=== PATIENT | female | born 1970 | race Caucasian/White ===

== ENCOUNTER 2021-09-29 14:55 | Outpatient (REF) | payer OTHER, SELFPAY ==
--- NOTE | ~2021-09-29 | MM_ITS ---
EXAMINATION: MM DIAGNOSTIC DIGITAL BREAST TOMOSYNTHESIS, BILATERAL US DIAGNOSTIC ULTRASOUND BREAST, RIGHT CLINICAL INFORMATION: [place] sized palpable area noted by patient mid upper outer right breast. The lifetime risk of breast cancer based on the Tyrer-Cuzick Model is 11%. COMPARISON: Mammography: 07/28/2019, outside mammography 01/13/2017, 05/02/2014 ([place], [place]). TECHNIQUE: Digital breast tomosynthesis is performed in both the craniocaudal and mediolateral oblique views along with computer-aided detection (CAD). Synthesized 2D images are generated from the tomosynthesis. Ultrasound right breast is targeted to the area of clinical concern upper outer quadrant. In addition, imaging also performed periareolar outer right breast in area of nodularity on mammography. Grayscale imaging and color Doppler are performed without and with harmonics. FINDINGS: The breasts are heterogeneously dense, which may obscure small masses (ACR BI-RADS breast composition Category c). Breast tissue composition borders on average fibroglandular. Denser breast parenchyma areas in the upper quadrants. The parenchymal pattern is similar to prior studies. Left breast shows no significant mass or architectural abnormality. Neither breast shows abnormal calcifications. The axilla and skin contours are unremarkable. Right breast shows no mammographic correlate for patient's symptoms mid upper outer quadrant which appears similar to prior studies dating back to 2013. There is an oval circumscribed nodule periareolar 9:30 o'clock right breast on current exam, corresponding to cyst on subsequent ultrasound. Ultrasound right breast demonstrates 2 small simple cysts anterior lateral breast, the larger corresponds to the nodularity on mammography and measures 0.6 x 0.4 cm. The cyst is anechoic and shows increased through-transmission of sound and no color flow. The adjacent smaller cyst measures 0.4 x 0.3 cm. There is no solid mass or architectural abnormality. There is no ultrasound correlate in the area of patient palpable concern. Results are discussed with the patient at time of visit. MM/MM tomosynthesis diagnostic BI IMPRESSION: Left: -No mammographic evidence of malignancy. Right: -No mammographic evidence of malignancy. -Two subcentimeter simple cysts anterior lateral breast, unrelated to palpable concern. ASSESSMENT: BI-RADS 2: Benign RECOMMENDATION: 1. Patient's right breast palpable concern should be managed based on the clinical impression. If clinically indicated, further evaluation may be considered with surgical consult. Decision to proceed with biopsy should be based on clinical grounds and degree of clinical concern. 2. Otherwise, routine annual screening mammography. This patient's information was entered into a reminder system with a target due date for their next mammogram.
== END 2021-09-29 14:56 | disposition home or self-care (01) ==
LOC: HO.MAMMO 14:55
PROVIDERS: PCP Internal Medicine; Visit Provider Internal Medicine
DX: N63.15 Unspecified lump in the right breast, overlapping quadrants (principal)
CPT/HCPCS: 76642; 77062; 77066

== ENCOUNTER 2021-12-16 06:45 | Outpatient (REF) | payer OTHER, SELFPAY ==
[2021-12-16 11:42] LABS: MANUAL DIFF FLAG NO
[2021-12-16 12:01] LABS: Basophils Absolute Auto 0.1 X10*3/uL (0.0-0.2); Basophils Percent Auto 0.7 % (0-2); Eosinophils Absolute Auto 0.1 X10*3/uL (0.0-0.4); Eosinophils Percent Auto 1.9 % (0-4); Hematocrit 36.4 % (37.0-47.0); Hemoglobin 11.8 g/dl (12.0-16.0); Imm Gran Abs Auto 0.01 X10*3/uL (0.00-0.03); Imm Gran Pct Auto 0.1 % (0.0-0.4); Lymphocytes Absolute Auto 3.1 X10*3/uL (1.2-4.9); Lymphocytes Percent Auto 44.4 % (20-40); Mean Corpuscular HGB Conc 32.4 g/dl (31.0-35.0); Mean Corpuscular Hemoglobin 27.9 pg (27.0-33.0); Mean Corpuscular Volume 86.1 fL (80.0-98.0); Mean Platelet Volume 10.5 fL (9.4-12.3); Monocytes Absolute Auto 0.5 X10*3/uL (0.1-1.2); Neutrophils Absolute Auto 3.2 x10*3/uL (2.0-8.3); Neutrophils Percent Auto 45.9 % (45-73); Platelet Count 275 X10*3/uL (160-400); Red Blood Count 4.23 X10*6/uL (4.20-5.50); Red Cell Distribution Width 13.6 % (11.0-16.0); White Blood Count 6.9 X10*3/uL (4.8-10.8)
[2021-12-16 12:29] LABS: Alanine Aminotransferase 23 U/L (0-31); Albumin Level 4.3 g/dL (3.5-5.0); Alkaline Phosphatase 72 U/L (39-117); Anion Gap 11 (12-20); Aspartate Amino Transferase 19 U/L (5-31); Bilirubin Total 0.7 mg/dL (0.0-1.0); Blood Urea Nitrogen 15 mg/dL (9-16); Calcium 8.9 mg/dL (8.4-10.2); Carbon Dioxide 27 mmol/L (22-29); Chloride 105 mmol/L (96-108); Cholesterol 206 mg/dL; Estimated Glomerular Filt Rate > 60; Glucose Fasting 96 mg/dL (60-99); HDL Cholesterol 41 mg/dL; LDL Cholesterol Calculated 137 mg/dl; Potassium 4.2 mmol/L (3.3-5.1); Sodium 139 mmol/L (135-145); Total Protein 7.2 g/dL (6.5-8.0); Triglycerides 144 mg/dL
[2021-12-16 12:53] LABS: TSH reflex Free T4 3.16 uIU/mL (0.32-4.0)
== END 2021-12-16 06:46 | disposition home or self-care (01) ==
LOC: HO.HMGCLDS 06:45
PROVIDERS: Visit Provider Internal Medicine
DX: Z00.01 Encounter for general adult medical examination with abnormal findings (principal); E66.09 Other obesity due to excess calories; R03.0 Elevated blood-pressure reading, without diagnosis of hypertension
CPT/HCPCS: 36415; 80053; 80061; 84443; 85025

== ENCOUNTER 2022-03-26 10:58 | Emergency (ER) | payer OTHER, SELFPAY ==
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
[2022-03-26 11:14] VITALS: BP 154/88; PULSE 90; RESP 20; TEMP 36.6; O2SAT 98; BMI 38.2
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
--- NOTE | 2022-03-26 18:01 | ECG_ITS ---
Test Reason : DIZZINESS Blood Pressure : / mmHG Vent. Rate : 076 BPM Atrial Rate : 076 BPM P-R Int : 146 ms QRS Dur : 078 ms QT Int : 406 ms P-R-T Axes : 060 010 038 degrees QTc Int : 456 ms Normal sinus rhythm Normal ECG No previous ECGs available Referred By: Codi Mock Electronically Signed By:YADIEL PRUETT
[2022-03-26] MEDS: Cyclobenzaprine HCl 10 MG TABLET PO (19:15)
[2022-03-26] MEDS: Ibuprofen 600 MG TABLET PO (19:15)
== END 2022-03-26 21:13 | disposition home or self-care (01) ==
PROVIDERS: Emergency Provider Internal Medicine; PCP Internal Medicine
DX: S06.0X0A Concussion without loss of consciousness, initial encounter (principal); S13.4XXA Sprain of ligaments of cervical spine, initial encounter; S62.101A Fracture of unspecified carpal bone, right wrist, initial encounter for closed fracture; V43.52XA Car driver injured in collision with other type car in traffic accident, initial encounter; M25.511 Pain in right shoulder; Y93.89 Activity, other specified; Y92.414 Local residential or business street as the place of occurrence of the external cause; Y99.9 Unspecified external cause status
CPT/HCPCS: 71045; 73030; 73110; 93005; 99283

== ENCOUNTER 2022-07-28 08:00 | Outpatient (RCR) | payer OTHER, SELFPAY ==
--- NOTE | 2022-07-28 14:09 | MHC.OT.DC ---
[address] [phone] F: [phone] Occupational Therapy Discharge Note Provider: Snehal Rehman Diagnosis: Right wrist fracture Date of Surgery: Date of Evaluation: 06/09/22 Date of Discharge: 07/28/22 Treatments to Date: 6 Cancellations to Date: 1 No Shows to Date: 0 Discharge Status: Achieved Goals Improved Function Independent with HEP Discharge Summary: Pt demonstrates significant improvement in right hand and wrist sx. She continues to report mild occasional ulnar wrist pain and complaint of small finger intermittent numbness . Light touch sensation WNL Upper limb tension tests WNL Wrist ROM improved . Goal met. Patient Coordinator Front Desk strength improved at 55 lb on the right compared to 70 lb on the left Pt primary complaint is right shoulder pain and continued occasional ulnar hand numbness Goals considered met Electronically Signed By: Shalini Samuel OT CHT CLT Reviewed/agree with student documentation: Therapist: Please Sign and return to therapist, thank you for your referral.
== END 2022-07-28 14:09 ==
LOC: HO.OT 08:00
PROVIDERS: PCP Internal Medicine; Visit Provider Internal Medicine
DX: S62.101A Fracture of unspecified carpal bone, right wrist, initial encounter for closed fracture (principal); M25.511 Pain in right shoulder
CPT/HCPCS: 97033; 97110; 97165

== ENCOUNTER 2022-10-29 14:58 | Outpatient (REF) | payer OTHER, SELFPAY ==
[2022-11-04 01:54] LABS: HPV mRNA E6/E7 rflx Not Detected (Not Detected)
== END 2022-10-29 14:59 | disposition home or self-care (01) ==
LOC: HO.LNP 14:58
PROVIDERS: PCP Internal Medicine; Visit Provider Advanced Practice Midwife
DX: Z01.419 Encounter for gynecological examination (general) (routine) without abnormal findings (principal); Z11.51 Encounter for screening for human papillomavirus (HPV)
CPT/HCPCS: 87624; 88142

== ENCOUNTER 2022-11-09 16:23 | Outpatient (REF) | payer OTHER, SELFPAY ==
--- NOTE | ~2022-11-09 | MM_ITS ---
EXAMINATION: MM SCREENING DIGITAL BREAST TOMOSYNTHESIS, BILATERAL CLINICAL INFORMATION: Screening. Asymptomatic. The lifetime risk of breast cancer based on the Tyrer-Cuzick Model is 10%. COMPARISON: Mammography: 09/29/2021, 07/28/2019, right breast ultrasound 09/29/2021; outside mammography 01/13/2017 ([facility], [place], [place]). TECHNIQUE: Digital breast tomosynthesis is performed in both the craniocaudal and mediolateral oblique views along with computer-aided detection (CAD). Synthesized 2D images are generated from the tomosynthesis. FINDINGS: The breasts are heterogeneously dense, which may obscure small masses (ACR BI-RADS breast composition Category c). Parenchymal pattern is similar to prior studies and there is no developing density or architectural abnormality or significant mass. The cyst periareolar 9:30 right breast is decreased in size, no longer clearly visualized. Again, there are scattered bilateral punctate benign round calcifications. There are new loosely grouped round benign-appearing calcifications central 11:30 right breast. Patient will be recalled to obtain magnification views to fully characterize. MM/MM tomosynthesis screening BI IMPRESSION: Right: -There are new loosely grouped probable benign round calcifications central 11:30 right breast. Left: -No mammographic evidence of malignancy. ASSESSMENT: BI-RADS 0: Incomplete - Need Additional Imaging Evaluation RECOMMENDATION: Routine annual mammography screening. This patient's information was entered into a reminder system with a target due date for their next mammogram.
== END 2022-11-09 16:24 | disposition home or self-care (01) ==
LOC: HO.MAMMO 16:23
PROVIDERS: PCP Internal Medicine; Visit Provider Internal Medicine
DX: Z12.31 Encounter for screening mammogram for malignant neoplasm of breast (principal)
CPT/HCPCS: 77063; 77067

== ENCOUNTER 2022-12-02 14:53 | Outpatient (REF) | payer OTHER, SELFPAY ==
--- NOTE | ~2022-12-02 | MM_ITS ---
EXAMINATION: MM DIAGNOSTIC DIGITAL MAMMOGRAPHY, RIGHT CLINICAL INFORMATION: Recall from screening for new loosely grouped round calcifications central 11:30 o'clock right breast. TC score 10%. COMPARISON: Mammography: 11/09/2022, 09/29/2021, 07/28/2019 TECHNIQUE: Digital mammography is performed in the following views: Magnification CC, magnification ML. FINDINGS: The breasts are heterogeneously dense, which may obscure small masses (ACR BI-RADS breast composition Category c). The additional magnification views confirm benign-appearing loosely grouped round calcifications mid 11:30 position, some coarser and some smaller. There are other similar appearing scattered calcifications in the breast. Results are discussed with the patient at time of visit. Management plan is for short interval follow-up diagnostic right mammography in 6 months to include magnification views. MM/MM added views RT IMPRESSION: Probable benign round grouped calcifications mid 11:30 right breast. ASSESSMENT: BI-RADS 3: Probably Benign RECOMMENDATION: Diagnostic right mammography in 6 months. This patient's information was entered into a reminder system with a target due date for their next mammogram.
== END 2022-12-02 14:54 | disposition home or self-care (01) ==
LOC: HO.MAMMO 14:53
PROVIDERS: PCP Internal Medicine; Visit Provider Internal Medicine
DX: R92.1 Mammographic calcification found on diagnostic imaging of breast (principal)
CPT/HCPCS: 77065

== ENCOUNTER 2022-12-15 16:00 | Outpatient (RCR) | payer OTHER, SELFPAY ==
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
--- NOTE | 2022-12-18 08:48 | MHC.PT.DC ---
[facility] [place] Office [place] Office [place] Office [address] Nohelia Weber [address] [phone] F: [phone] F: [phone] F: [phone] F: [phone] Physical Therapy Discharge Report Diagnosis: pain in R shoulder Date of Surgery: n/a Date of Evaluation: 08/24/22 Date of Discharge: 12/18/22 Treatments to Date: 19 Cancellations to Date: 1 No Shows to Date: 0 Discharge Status: Recommend MD Follow-up Discharge Summary: Pt saw TONG SETTER for last scheduled visit at which point plan was to d/c and follow up with MD. Electronically signed by: Nilam Walsh, PT, DPT, ATC Please sign and return to therapist. Thank you for your referral.
== END 2022-12-18 08:48 | disposition home or self-care (01) ==
LOC: HO.PTCHIC 16:00
PROVIDERS: PCP Internal Medicine; Visit Provider Internal Medicine
DX: M25.511 Pain in right shoulder (principal)
CPT/HCPCS: 97110; 97140; 97161

== ENCOUNTER 2023-08-19 13:52 | Outpatient (REF) | payer OTHER, SELFPAY ==
--- NOTE | ~2023-08-19 | MM_ITS ---
EXAMINATION: MM DIAGNOSTIC DIGITAL BREAST TOMOSYNTHESIS, BILATERAL CLINICAL INFORMATION: 6 month follow-up right breast probably benign calcifications. Patient also due for bilateral screening. History of right breast cysts. COMPARISON: Mammography: 12/02/2022, 11/09/2022 (BI-RADS 0) 09/29/2021, 07/28/2019; right breast ultrasound 09/29/2021; outside mammography 01/13/2017 ([facility], [place], [place]). TECHNIQUE: Digital breast tomosynthesis is performed in both the craniocaudal and mediolateral oblique views along with computer-aided detection (CAD). Synthesized 2D images are generated from the tomosynthesis. In addition, 2-D spot magnification right CC and ML views were obtained. FINDINGS: The breasts are heterogeneously dense, which may obscure small masses (ACR BI-RADS breast composition Category c). Loosely grouped rounded calcifications in the mid 11:30 position right breast are slightly more coarsened in appearance compared with 12/02/2022, and do not demonstrate any aggressive changes. These calcifications are benign and no further follow-up recommended. There are stable scattered bilateral punctate calcifications, benign. There are similar known benign cysts in the upper outer right breast, unchanged. There are no suspicious masses or areas of architectural distortion in either breast. The parenchymal pattern is stable from prior exams. MM/MM tomosynthesis diagnostic BI IMPRESSION: There are no findings in either breast suspicious for malignancy. Rounded calcifications in the upper outer right breast, posterior one third, have become more coarsened and coalesced further, and are clearly benign in etiology. No further follow-up recommended. Stable benign findings in both breasts. Recommend the patient return to routine annual screening mammography. ASSESSMENT: BI-RADS BI-RADS 2 - Benign Findings RECOMMENDATION: 1 year F/U Results were provided to the patient at time of visit by the technologist. This patient's information was entered into a reminder system with a target due date for their next mammogram.
== END 2023-08-19 13:53 | disposition home or self-care (01) ==
LOC: HO.MAMMO 13:52
PROVIDERS: PCP Internal Medicine; Visit Provider Internal Medicine
DX: R92.1 Mammographic calcification found on diagnostic imaging of breast (principal)
CPT/HCPCS: 77062; 77066

== ENCOUNTER → 2023-08-19 14:00 | Outpatient (BNV) | payer OTHER, SELFPAY | PROVIDERS: PCP Internal Medicine; Visit Provider Radiology Diagnostic Radiology | DX: R92.1 Mammographic calcification found on diagnostic imaging of breast (principal) | CPT/HCPCS: 77062; 77066 ==

== ENCOUNTER 2023-11-17 13:58 | Outpatient (AMB) | payer OTHER, SELFPAY ==
--- NOTE | 2023-11-17 14:04 | MHC.OFFVIS ---
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 She is doing well with no concerns. Attempting to eat a healthy diet with calcium and vitamin D and stays active with exercise w/walking. Had shoulder surgery in April finishing up physical therapy now. Currently sexually active, female partner only. Denies any vaginal dryness or irritation. STI testing offered; she declines. Last pap smear; 2022. Last mammogram; 2023. Cologuard in 2022. Denies any family history of breast, ovarian or colon cancer. [facility] Surgical History (Updated 11/17/23 @ 14:44 by JUDY Salmon) Hx of LASIK Hx of rotator cuff surgery Hx of tonsillectomy Family History Sister Personal history of malignant neoplasm of cervix uteri Social History Housing: Apartment Patient Tobacco Use Status: Never used Tobacco e-Cigarette/Vaping Use: Never Used Second Hand Smoke Exposure: No Patient : No Current occupational status: employed Sexual orientation: Lesbian/Armijo/Homosexual Cognitive needs: No Hearing needs: No Vision needs: No Female Reproductive History Menstrual Age of Menarche: 11 control method: none Total pregnancies: 0 Date of last pap smear: 10/31/22 (negative) Date of Mammogram: 08/19/23 Review of Systems Const All systems reviewed & are unremarkable except as noted in HPI and below Reports as per HPI Eyes Reports no additional complaints ENT Reports no additional complaints Card Reports no additional complaints Resp Reports no additional complaints GI Reports as per HPI and Reports no additional complaints Reports as per HPI Musc Reports no additional complaints Skin/Breast Reports as per HPI Neuro Reports no additional complaints Psych Reports no additional complaints Endo Reports no additional complaints Gokul/Lymph Reports no additional complaints Aller/Immun Reports no additional complaints Physical Exam Vital Signs: Last Vital Signs BP 136/92 H 11/17/23 14:05 BMI result Body Mass Index 42.4 Const General: cooperative, healthy appearing, no acute distress, well developed and alert Orientation/consciousness: patient oriented x3 HEENT Head: Yes normal to inspection Eyes General: appearance normal, both eyes and all related structures Neck Neck: Yes normal visual inspection Thyroid: Thyroid normal Chest Chest palpation & inspection: normal inspection of the chest and other (no puckering, dimpling, peau de orange, retraction, discharge, masses) Breast/axilla inspection: normal inspection of the breasts Breast/axilla palpation: normal palpation of the breasts Resp Effort & Inspection: normal respiratory effort GI Inspection: Yes normal to inspection and Yes obesity Palpation (GI): Soft to palpation Rectal Exam - Female: deferred General: Yes bladder normal to palpation External Female Exam: normal external appearance and normal appearance of the urethra Speculum Exam - Vagina: normal appearance of the vagina, normal palpation and normal vaginal discharge Speculum Exam - Cervix: normal appearance of the cervix and normal palpation Bimanual exam- vagina & uterus: normal bimanual exam, normal palpation, uterine size normal, bladder normal to palpation, normal palpation and non-tender Bimanual Exam- Adnexa, other: no masses Skin General skin exam: no rashes or lesions noted Rashes: no rashes Neuro General: patient oriented x3 Cognition (Neuro): normal cognition Extrem General: Yes normal to inspection Psych Attitude: cooperative Thought process: Normal thought process present Assessment & Plan Assessment & Plan (1) Encounter for well woman exam with routine gynecological exam: Code(s): Z01.419 - Encounter for gynecological examination (general) (routine) without abnormal findings Category: Medical Plan: Discussed: Current recommendations for pap smears per ASCCP guidelines. Breast awareness, periodic self breast exams and yearly mammogram. Maintain a healthy lifestyle, well balanced diet including Calcium 1,200 mg and Vitamin D 600 IU daily, and routine exercise. Contact the office with any postmenopausal bleeding. Patient verbalizes understanding and agrees to the plan of care. She was given opportunity to ask questions and all questions were answered to the best of my ability. 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 This note is constructed using voice recognition software. While every effort has been made to ensure accuracy, electron gun inspector errors may have been included. Coding Level of Care Code Est Pt Prev Care 40-64y(20183) Diagnoses Encounter for well woman exam with routine gynecological exam Z01.419
[2023-11-17 14:05] VITALS: BP 136/92; BMI 42.4
== END 2023-11-17 15:17 | disposition home or self-care (01) ==
LOC: HO.HWS 13:58
PROVIDERS: PCP Internal Medicine; Visit Provider Advanced Practice Midwife
DX: Z01.419 Encounter for gynecological examination (general) (routine) without abnormal findings (principal)
CPT/HCPCS: 99396

== ENCOUNTER → 2023-11-17 13:58 | Outpatient (BNVA) | payer OTHER, SELFPAY | PROVIDERS: PCP Internal Medicine; Visit Provider Advanced Practice Midwife ==

== ENCOUNTER 2024-01-26 09:13 | Outpatient (AMB) | payer OTHER, SELFPAY ==
--- NOTE | 2024-01-26 10:35 | MHC.OFFWIV ---
Intake Vital Signs 01/26/24 10:36 Height 5 ft 5 in Weight 250 lb BMI 41.6 BP 106/76 Blood Pressure Location Rt brachial Position Sitting Pulse 82 Pulse Source Pulse Oximeter Temp 98.5 F Temp Source Oral Pulse Oximetry (%) 96 Oxygen Delivery Method Room Air Intake Visit Reasons: stuffy nose, sore throat, cough [phone] Intake Note: pt c/o stuffy nose, sore throat and cough. Started yesterday Patient Tobacco Use Status: Never used Tobacco Allergies penicillin V Allergy (Unknown, Verified 01/26/24 10:35) Rash sulfadiazine Allergy (Unknown, Verified 01/26/24 10:35) Rash amoxicillin Allergy (Verified 01/26/24 10:35) Hives Do you need a note to return to daycare/school/sports/work: Yes HPI stuffy nose, sore throat, cough [phone] HPI Details This note is constructed using voice recognition software. While every effort has been made to ensure accuracy, senior property accountant errors may have been included. The patient is a 53 year old female who presents to the clinic today with pharyngitis for 2 days. She reports fever 102 yesterday. Also having allergy symptoms including mild cough, sinus congestion and eye irritation typical of her normal allergies. [facility] Surgical History (Updated 11/17/23 @ 14:44 by JUDY Salmon) Hx of LASIK Hx of rotator cuff surgery Hx of tonsillectomy Family History Sister Personal history of malignant neoplasm of cervix uteri Social History Housing: Apartment Patient Tobacco Use Status: Never used Tobacco e-Cigarette/Vaping Use: Never Used Second Hand Smoke Exposure: No Current occupational status: employed Sexual orientation: Lesbian/Armijo/Homosexual Cognitive needs: No Hearing needs: No Vision needs: No Female Reproductive History Menstrual Age of Menarche: 11 Review of Systems Const All systems reviewed & are unremarkable except as noted in HPI and below Physical Exam Vital Signs: Last Vital Signs Temp 98.5 F 01/26/24 10:36 Pulse 82 01/26/24 10:36 BP 106/76 01/26/24 10:36 Pulse Ox 96 08/07/24 10:36 Oxygen Delivery Method Room Air 01/26/24 10:36 BMI result Body Mass Index 41.6 Const General: cooperative, healthy appearing, comfortable and no acute distress Orientation/consciousness: patient oriented x3 Limitations: no limitations HEENT Head: Yes normal to inspection Ears: hearing grossly normal bilaterally, external ears normal and TM's normal bilaterally General nose exam: Normal external nose present, Normal nares present and No nasal discharge present Face and sinus: Yes normal facial exam and Yes sinuses nontender Mouth: Normal oral and palatal mucosa present and moist mucous membranes Throat: Yes tonsils normal, Yes uvula midline and Yes posterior oropharynx abnormal (Erythema, with exudate) Eyes General: appearance normal, both eyes and all related structures Neck Neck: Yes normal visual inspection Lymphatic: lymphadenopathy bilateral anterior cervical Resp Effort & Inspection: normal respiratory effort, able to speak in complete sentences, Actively coughing, no respiratory distress, not tachypneic, no tripod positioning and no use of accessory muscles Auscultation: clear to auscultation bilaterally Cardio Jugular venous distension: no JVD Rate: regular rate Rhythm: regular rhythm Heart sounds: S1 normal heart sound present, S2 normal heart sound present, no click, no gallops, no murmurs and no rubs Skin General skin exam: no rashes or lesions noted, elasticity normal and turgor normal Neuro General: patient oriented x3 Extrem General: Yes normal to inspection and Yes no clubbing, cyanosis or edema Results AMB Rapid Strep AMB Rapid Strep Positive Last Edit by Perez Lugo CMA on 01/26/24 10:53 Results Reviewed Results Reviewed: Laboratory Last Values Strep Scn Rapid Clinic Positive 01/26/24 10:43 Assessment & Plan Assessment & Plan (1) Strep pharyngitis: Code(s): J02.0 - Streptococcal pharyngitis Plan: Patient positive for strep on rapid Sammy exam. She does report allergy to penicillin, so antibiotic selected based on allergy, with clindamycin. Advised patient to take to complete. Advised to remain out of work through tomorrow to be over 24 hours with antibiotic treatment. Advised change her toothbrush after starting antibiotics. Advised Tylenol or Motrin for pain management, gargling warm saltwater. Advised follow up with worsening symptoms or failure to resolve. Plan See above for full details and plan. Orders: Orders AMB Rapid Strep Screen Today Z13.9 - Encounter for screening, unspecified Medications: New clindamycin HCl 300 mg PO TID 10 days 30 caps 0RF Coding Level of Care Code Est Pt Level 3 (43216) Diagnoses Strep pharyngitis J02.0
[2024-01-26 10:36] VITALS: BP 106/76; PULSE 82; TEMP 36.9; O2SAT 96; BMI 41.6
== END 2024-01-26 11:35 | disposition home or self-care (01) ==
PROVIDERS: PCP Internal Medicine; Visit Provider Registered Nurse
DX: Z13.9 Encounter for screening, unspecified (principal); J02.0 Streptococcal pharyngitis
CPT/HCPCS: 87880; 99213

== ENCOUNTER 2024-05-02 14:29 | Outpatient (AMB) | payer OTHER, SELFPAY ==
--- NOTE | 2024-05-02 14:30 | A.OFFPC_ITS ---
Vital Signs 05/02/24 14:32 Height 5 ft 5 in Weight 253 lb 6 oz BMI 42.2 BP 138/84 Blood Pressure Location Rt brachial Position Sitting Pulse 86 Pulse Source Pulse Oximeter Pulse Oximetry (%) 97 Oxygen Delivery Method Room Air Intake Visit Reasons: annual exam Allergies penicillin V Allergy (Unknown, Verified 05/02/24 14:31) Rash sulfadiazine Allergy (Unknown, Verified 05/02/24 14:31) Rash amoxicillin Allergy (Verified 05/02/24 14:31) Hives Medication List - Last Reconciled 05/02/24 by Snehal Rehman MD cetirizine (Zyrtec) 10 mg PO DAILY PRN ibuprofen 400 mg PO Q8H PRN multivitamin (Daily Multi-Vitamin tablet) 1 tab PO DAILY Tobacco use date assessed: 05/02/24 Dental Screening Dental Screen Date: 05/02/24 Did you have a dental visit in the last 12 months?: Yes Did you have a dental problem in the last 6 months where you did not have access to dental care?: No Was dental information given to patient?: Patient has dentist HPI annual exam HPI Details Patient is a 53-year-old female this is physical exam appointment Patient has gained weight since early this year Patient says that she had a shoulder surgery and she could not do much of anything so she gained weight She is trying to lose We talked about the dietary restrictions and calorie count today Lab order placed to be done fasting Mammogram was July of this year OBGYN visit was October of this year She still do not want to do colonoscopy She had Cologuard done in 2021 We will repeat it again next year [facility] Surgical History Hx of LASIK Hx of rotator cuff surgery Hx of tonsillectomy Family History Sister Personal history of malignant neoplasm of cervix uteri Social History Housing: Apartment Patient Tobacco Use Status: Never used Tobacco e-Cigarette/Vaping Use: Never Used Second Hand Smoke Exposure: No service: No Current occupational status: employed Sexual orientation: Lesbian/Armijo/Homosexual Cognitive needs: No Hearing needs: No Vision needs: No Female Reproductive History Menstrual Age of Menarche: 11 Questionnaire PHQ-9 Over the last 2 weeks, how often have you been bothered by any of the following problems? 1. Little interest or pleasure in doing things: not at all 2. Feeling down, depressed, or hopeless: not at all 3. Trouble falling or staying asleep, or sleeping too much: several days 4. Feeling tired or having little energy: several days 5. Poor appetite or overeating: not at all 6. Feeling bad about yourself - or that you are a failure or have let yourself or your family down: not at all 7. Trouble concentrating on things, such as reading the newspaper or watching television: not at all 8. Moving or speaking so slowly that other people could have noticed. Or the opposite - being so fidgety or restless that you have been moving around a lot more than usual: not at all 9. Thoughts that you would be better off or of hurting yourself in some way: not at all Total score: 2 Depression Screening Interpretation: Negative Depression Screening Done: Yes 35286 - PHQ-9 Billing: Yes Source: Developed by Drs. Fredy Johnson, Mony Maxwell, Barrett Garcia and colleagues, with an educational rolf from [employer]. Thrive Questionnaire Date Thrive assessed: 05/02/24 I am a: Patient What is your living situation today?: I have a steady place to live Within the past 12 months, did the food you bought not last and you didn't have the money to get more?: I choose not to answer this question Within the past 12 months, did you worry whether your food would run out before you got money to buy more?: Never true Do you have trouble paying for medicines?: No Do you have trouble getting transportation to medical appointments?: No Do you have trouble paying your heating and electricity bill?: No Do you have trouble taking care of your child, family member or friend?: No Do you have trouble with day-to-day activities such as bathing, preparing meals, shopping, managing finances, etc.?: No Are you currently unemployed and looking for a job?: No Are you interested in more education?: No Please select the resources that you would like help with: None Currently or been in a relationship where the following occur: No concerns reported THRIVE Score: 0 AUDIT C Alcohol Use Questionnaire (AUDIT-C) 1. How often do you have a drink containing alcohol?: Monthly or less 2. How many drinks containing alcohol do you have on a typical day when you are drinking?: 1 or 2 3. How often do you have six or more drinks on one occasion?: Never Total Score: 1 Score Reviewed/Action Taken: Yes MAURICIO-7 AMB Questionnaire MAURICIO-7 Date MAURICIO - 7 assessed: 05/02/24 Feeling nervous, anxious, or on edge: 0 = Not at all Not being able to stop or control worryin = Not at all Worrying too much about different things: 0 = Not at all Trouble relaxin = Not at all Being so restless that it is hard to sit still: 0 = Not at all Becoming easily annoyed or irritable: 1 = Several days Feeling afraid as if something awful might happen: 0 = Not at all Total MAURICIO-7 score (0-4 normal; 5-9 mild; 10-14 moderate; 15-21 severe): 1 Source: Developed by Drs. Fredy Johnson, Mony Maxwell, Barrett Garcia and colleagues, with an educational rolf from [employer]. MAURICIO-7 Assessment Billing MAURICIO-7 Assessment Tool: MAURICIO-7 Assessment 46742 Review of Systems Const Denies chills, Denies fever(s) and Denies headache(s) Eyes Denies blurry vision ENT Denies headache(s), Denies nasal discharge, Denies nasal obstruction, Denies odynophagia and Denies sinus pain Card Denies chest pain at rest and Denies chest pain with activity Resp Denies cough and Denies hemoptysis GI Denies diarrhea, Denies odynophagia, Denies vomiting and Denies hematemesis Reports as per HPI Musc Denies abnormal gait Skin/Breast Reports as per HPI Neuro Denies Neuro-related abnormal movements, Denies Abnormal speech present, Denies abnormal gait, Denies headache(s) and Denies Sensory deficit (Neuro) Psych Denies mood swings and Denies paranoia Endo Reports as per HPI Gokul/Lymph Reports as per HPI Aller/Immun Reports as per HPI Physical exam (Primary Care) Vital Signs: Last Vital Signs Pulse 86 05/02/24 14:32 BP 138/84 05/02/24 14:32 Pulse Ox 97 05/02/24 14:32 Oxygen Delivery Method Room Air 05/02/24 14:32 BMI result Body Mass Index 42.2 Tobacco/Smoking Status: Tobacco use Status Tobacco use date assessed 05/02/24 05/02/24 14:34 Patient Tobacco Use Status Never used Tobacco 05/02/24 14:34 e-Cigarette/Vaping Use Never Used 05/02/24 14:34 PHQ-9: PHQ-9 Score PHQ-9: Total score 2 05/02/24 14:34 Depression Screening Interpretation: Negative Thrive Assessment: Date of Thrive Assessment Date Thrive assessed 05/02/24 05/02/24 14:34 Currently or been in a relationship where the following occur: No concerns reported Const General: cooperative, comfortable and no acute distress Orientation/consciousness: patient oriented x3 HENMT Head: Yes normocephalic and Yes atraumatic Eyes General: appearance normal, both eyes and all related structures Pupils: Equal, round and reactive pupils present EOM: EOMs intact bilaterally Neck Neck: Yes supple and No lymphadenopathy Thyroid: Thyroid normal Lymphatic: no lymphadenopathy noted Resp Effort & Inspection: normal respiratory effort and able to speak in complete sentences Auscultation: clear to auscultation bilaterally Cardio Heart sounds: S1 normal heart sound present and S2 normal heart sound present GI Palpation (GI): Soft to palpation and nontender Auscultation: normal bowel sounds General: Yes no CVA tenderness Back/Spine/Pelvis Back: no CVA tenderness Skin General skin exam: elasticity normal and turgor normal Neuro General: patient oriented x3 and gait normal Cranial nerves: Yes Equal, round and reactive pupils present Speech: No Abnormal speech present Sensory Exam: No Sensory deficit (Neuro) Coordination: tandem gait normal and Romberg test negative Extrem General: Yes normal exam except as noted and No edema Coding Level of Care Code Est Pt Level 3 (71126) Est Pt Prev Care 40-64y(62881) Diagnoses Encounter for general adult medical examination with abnormal findings Z00.01 Morbid obesity due to excess calories E66.01 Additional Codes MAURICIO-7 Assessment Billing - MAURICIO-7 Assessment Tool: MAURICIO-7 Assessment 04187 ([id number]) PHQ-9 - 14024 - PHQ-9 Billing: Yes ([id number]) Assessment & Plan Assessment & Plan (1) Encounter for general adult medical examination with abnormal findings: Code(s): Z00.01 - Encounter for general adult medical examination with abnormal findings Category: Medical (2) Morbid obesity due to excess calories: Code(s): E66.01 - Morbid (severe) obesity due to excess calories Category: Medical Plan Patient is a 53-year-old female this is physical exam appointment Patient has gained weight since early this year Patient says that she had a shoulder surgery and she could not do much of anything so she gained weight She is trying to lose We talked about the dietary restrictions and calorie count today Lab order placed to be done fasting Mammogram was July of this year OBGYN visit was October of this year She still do not want to do colonoscopy She had Cologuard done in 2021 We will repeat it again next year Orders: Orders Lipid Panel Today E66.01 - Morbid (severe) obesity due to excess calories, Z00.01 - Encounter for general adult medical examination with abnormal findings TSH reflex Free T4 Today E66.01 - Morbid (severe) obesity due to excess calories, Z00.01 - Encounter for general adult medical examination with abnormal findings Complete Blood Count Auto Diff Today E66.01 - Morbid (severe) obesity due to excess calories, Z00.01 - Encounter for general adult medical examination with abnormal findings Comprehensive [place]. Panel Fast Today E66.01 - Morbid (severe) obesity due to excess calories, Z00.01 - Encounter for general adult medical examination with abnormal findings UA CC w/rflx Micro + Cult Today E66.01 - Morbid (severe) obesity due to excess calories, Z00.01 - Encounter for general adult medical examination with abnormal findings
[2024-05-02 14:32] VITALS: BP 138/84; PULSE 86; O2SAT 97; BMI 42.2
== END 2024-05-02 14:59 | disposition home or self-care (01) ==
PROVIDERS: PCP Internal Medicine; Visit Provider Internal Medicine
DX: Z00.00 Encounter for general adult medical examination without abnormal findings (principal); E66.01 Morbid (severe) obesity due to excess calories; Z68.41 Body mass index [BMI] 40.0-44.9, adult

== ENCOUNTER → 2024-05-02 14:29 | Outpatient (BNVA) | payer OTHER, SELFPAY | PROVIDERS: PCP Internal Medicine; Visit Provider Internal Medicine | DX: Z00.01 Encounter for general adult medical examination with abnormal findings (principal); E66.01 Morbid (severe) obesity due to excess calories; Z68.42 Body mass index [BMI] 45.0-49.9, adult | CPT/HCPCS: 96127 ==

== ENCOUNTER 2025-05-11 13:26 | Outpatient (AMB) | payer OTHER, SELFPAY ==
--- NOTE | 2025-05-11 13:29 | A.OFFPC_ITS ---
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 Accompanied by: Self / Same As Patient Allergies penicillin V Allergy (Unknown, Verified 05/11/25 13:31) Rash sulfadiazine Allergy (Unknown, Verified 05/11/25 13:31) Rash amoxicillin Allergy (Verified 05/11/25 13:31) Hives Medication List - Last Reconciled 05/11/25 by Snehal Rehman MD cetirizine (Zyrtec) 10 mg PO DAILY PRN ibuprofen 400 mg PO Q8H PRN multivitamin (Daily Multi-Vitamin tablet) 1 tab PO DAILY Tobacco use date assessed: 05/11/25 Dental Screening Dental Screen Date: 05/11/25 Did you have a dental visit in the last 12 months?: No Did you have a dental problem in the last 6 months where you did not have access to dental care?: No Was dental information given to patient?: Patient declined HPI HPI Comments History of Present Illness Details History of Present Illness The patient is a 54 year old individual presenting for a follow-up appointment for a physical exam. Prehypertension: - The patient's blood pressure was 130/8 6 mmHg at today's visit, compared to 138/84 mmHg last year. - This is characterized as prehypertensi on. Morbid Obesity: - The patient is morbidly obese with a B UT of 40.1. - The patient is actively trying to lose weight through Weight [employer] and has already lost 15 pounds, reporting feeling better. - The patient reports joint pain and bel ieves it is related to excess weight. - The weight loss goal is 185 lbs by the next visit, with an ultimate goal of 165 lbs. Allergic Rhinitis: - The patient takes allergy medicine reg ularly for symptoms that were worse this year. - The patient suspects an allergy to deo ething in the workplace. Arthralgia: - The patient reports joint pain, which can be felt in the hands and knees, especially when squatting. - There is a family history of arthritis . - Several years ago, the patient fell on ice and hit the hip/pelvic area, which still aches sometimes. - The patient denies sensations of teari ng or popping in the joints. History of Breast Cyst: - The patient had a history of a small c yst that has not been felt recently and seems to have resolved. - After initial discovery, follow-up selvin mograms were conducted every six months and were subsequently deemed fine. - The [employer] also previously examined [facility] area. Medical History: - Prehypertension - Morbid obesity - Allergic rhinitis - Arthralgia - History of a small breast cyst, now re solved - History of fall on ice, impacting the hip/pelvic area Surgical History: - Prior shoulder surgery, with a three-m ont recovery period at home Social History: - Exercise: The patient has a history of playing soccer for 28 years and was frequently in the sun. - Weight Management: Currently participa ting in [employer] and has lost 15 pounds. - Hobbies: Enjoys crocheting. Health Maintenance - Blood tests: Last performed in 2021. - Vaccinations: Recommended tetanus and influenza vaccines; the patient is due for tetanus. - [employer] Care: The patient is establishe d with an [employer], with the last visit in October of the previous year and a future appointment scheduled for September. - Mammogram: Last performed in July of the previous year; the patient needs to call to reschedule. - Colonoscopy: The patient performed a h ome test in 2021 and is due for another. [place] of Care The patient is established with an [employer] at the [facility]. 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 - The patient suspects a workplace aller gen may be contributing to allergy symptoms. [facility] Surgical History Hx of LASIK Hx of rotator cuff surgery Hx of tonsillectomy Family History Sister Personal history of malignant neoplasm of cervix uteri Social History Housing: Apartment Patient Tobacco Use Status: Never used Tobacco e-Cigarette/Vaping Use: Never Used Second Hand Smoke Exposure: No service: No Current occupational status: employed Sexual orientation: Lesbian/Armijo/Homosexual Cognitive needs: No Hearing needs: No Vision needs: No Female Reproductive History Menstrual Age of Menarche: 11 Questionnaire PHQ-9 Over the last 2 weeks, how often have you been bothered by any of the following problems? 1. Little interest or pleasure in doing things: not at all 2. Feeling down, depressed, or hopeless: not at all 3. Trouble falling or staying asleep, or sleeping too much: not at all 4. Feeling tired or having little energy: not at all 5. Poor appetite or overeating: not at all 6. Feeling bad about yourself - or that you are a failure or have let yourself or your family down: not at all 7. Trouble concentrating on things, such as reading the newspaper or watching television: not at all 8. Moving or speaking so slowly that other people could have noticed. Or the opposite - being so fidgety or restless that you have been moving around a lot more than usual: not at all 9. Thoughts that you would be better off or of hurting yourself in some way: not at all Total score: 0 Depression Screening Interpretation: Negative Depression Screening Done: Yes 13850 - PHQ-9 Billing: Yes Source: Developed by Drs. Fredy Johnson, Mony Maxwell, Brarett Garcia and colleagues, with an educational rolf from Definition 6. Thrive Questionnaire Date Thrive assessed: 05/08/25 I am a: Patient What is your living situation today?: I have a steady place to live Within the past 12 months, did the food you bought not last and you didn't have the money to get more?: Never true Within the past 12 months, did you worry whether your food would run out before you got money to buy more?: Never true Do you have trouble paying for medicines?: No Do you have trouble getting transportation to medical appointments?: No Do you have trouble paying your heating and electricity bill?: No Do you have trouble taking care of your child, family member or friend?: No Do you have trouble with day-to-day activities such as bathing, preparing meals, shopping, managing finances, etc.?: No Are you currently unemployed and looking for a job?: No Are you interested in more education?: No Please select the resources that you would like help with: None Currently or been in a relationship where the following occur: No concerns repor donta THRIVE Score: 0 AUDIT C Alcohol Use Questionnaire (AUDIT-C) 1. How often do you have a drink containing alcohol?: Monthly or less 2. How many drinks containing alcohol do you have on a typical day when you are drinking?: 1 or 2 3. How often do you have six or more drinks on one occasion?: Never Total Score: 1 MAURICIO-7 AMB Questionnaire MAURICIO-7 Date MAURICIO - 7 assessed: 05/11/25 Feeling nervous, anxious, or on edge: 0 = Not at all Not being able to stop or control worryin = Not at all Worrying too much about different things: 0 = Not at all Trouble relaxin = Not at all Being so restless that it is hard to sit still: 0 = Not at all Becoming easily annoyed or irritable: 0 = Not at all Feeling afraid as if something awful might happen: 0 = Not at all Total MAURICIO-7 score (0-4 normal; 5-9 mild; 10-14 moderate; 15-21 severe): 0 Source: Developed by Drs. Fredy Johnson, Mony Maxwell, Barrett Garcia and colleagues, with an educational rolf from Definition 6. MAURICIO-7 Assessment Billing MAURICIO-7 Assessment Tool: MAURICIO-7 Assessment 62279 Review of Systems Narrative Review of Systems - General: No fever no chills - Neurological: No headaches no dizziness - Ear nose throat: No sore throat no hearing difficulty no ear pain - Cardiovascular: No syncope, no chest pain, no palpitations - Gastrointestinal: No nausea vomiting or diarrhea - Endocrine: No polyuria polydipsia no heat intolerance - Genitourinary: No dysuria - Skin: No new complaints Physical exam (Primary Care) Vital Signs: Last Vital Signs Pulse 81 05/11/25 13:30 Resp 16 05/11/25 13:30 BP 130/86 05/11/25 13:30 Pulse Ox 100 05/11/25 13:30 Oxygen Delivery Method Room Air 05/11/25 13:30 BMI result Body Mass Index 40.1 Tobacco/Smoking Status: Tobacco use Status Tobacco use date assessed 05/11/25 05/11/25 13:36 Patient Tobacco Use Status Never used Tobacco 05/11/25 13:30 e-Cigarette/Vaping Use Never Used 05/11/25 13:30 PHQ-9: PHQ-9 Score PHQ-9: Total score 0 05/11/25 13:54 Depression Screening Interpretation: Negative Thrive Assessment: Date of Thrive Assessment Date Thrive assessed 05/08/25 05/11/25 13:30 Currently or been in a relationship where the following occur: No concerns reported Narrative Diagnostic results - Blood Pressure: 130/86 mmHg. - BMI: 40.1. - Labs: Last blood test was performed in 2021. - Imaging: Last mammogram was in July of the previous year. - Screening Tests: Home colon cancer test was completed in 2021. Physical Exam General: Cooperative, healthy appearing, comfortable, no acute distress Orientation: Patient oriented x3 Head: Normal to inspection Ears: Within normal limit visually Nose: Normal external nose present Face and sinus: Normal facial exam Eyes: Appearance normal, extraocular movement intact pupils reactive Neck: Normal visual inspection and supple Respiratory: Normal respiratory effort and able to speak in complete sentences. Clear to auscultation, no stridor Cardiovascular: S1 and S2 RRR Breast exam bengin GI: Normal to inspection. Soft to palpation and nontender Skin: Turgor normal, no acute findings. No moles or skin problems noted. Sun spots present, no concerning changes. Neuro: Patient oriented x3, motor sensory intact, balance intact, tandem pass Extremities: Normal to inspection. . Immunizations Boostrix Tdap 2.5 Lf unit-8 mcg-5 Lf/0.5 mL intramuscular syringe Performing Provider: Snehal Rehman MD Performing Location: [facility] Administered by: Francisco Varghese CMA on 05/11/25 13:54 Dose Route Admin Location Dispensed Lot Number Expiration Date [facility] Assistant Chief Engineer 0.5 mL IM Left Deltoid 0.5 mL [id number] 12/01/27 [id number] [employer] Total Dispensed Waste 0.5 mL 0 % VIS Given Date VIS Provided VIS Publication Date 05/11/25 Single Vaccine 21 Eligibility Eligibility Date Funding Source Not [facility] Eligible 05/11/25 Private Coding Level of Care Code Est Pt Level 3 (96667) Est Pt Prev Care 40-64y(13461) Diagnoses Encounter for general adult medical examination with abnormal findings Z00.01 Pre-hypertension R03.0 Class 3 severe obesity due to excess calories without serious comorbidity with body mass index (BMI) of 40.0 to 44.9 in adult E66.813; Z68.41 Obesity classification: adult class 3 (BMI >= 40) Serious obesity comorbidity presence: without serious comorbidity Body mass index: BMI 40.0-44.9 Colon cancer screening Z12.11 Additional Codes MAURICIO-7 Assessment Billing - MAURICIO-7 Assessment Tool: MAURICIO-7 Assessment 82577 ([id number]) PHQ-9 - 22581 - PHQ-9 Billing: Yes ([id number]) Assessment & Plan Assessment & Plan (1) Encounter for general adult medical examination with abnormal findings: Code(s): Z00.01 - Encounter for general adult medical examination with abnormal findings Category: Medical (2) Pre-hypertension: Code(s): R03.0 - Elevated blood-pressure reading, without diagnosis of hypertension Category: Medical (3) Obesity due to excess calories: Code(s): E66.09 - Other obesity due to excess calories Category: Medical Qualifiers: Obesity classification: adult class 3 (BMI >= 40) Serious obesity comorbidity presence: without serious comorbidity Body mass index: BMI 40.0- 44.9 Qualified Code(s): E66.813 - Obesity, class 3; Z68.41 - Body mass index [BMI] 40.0-44.9, adult (4) Colon cancer screening: Code(s): Z12.11 - Encounter for screening for malignant neoplasm of colon Category: Medical Plan Patient Instructions - You will receive a tetanus vaccine today. - Go to the lab for a fasting blood test; the lab will be open tomorrow. - An order for a home-based colon cancer screening test has been placed for you. - Please call your [employer]'s office to schedule your mammogram. - Continue with your weight loss efforts. Let's aim for a weight of 185 pounds by your next visit. - Continue to monitor your blood pressure. Orders: Orders TSH reflex Free T4 Today E66.09 - Other obesity due to excess calories, R03.0 - Elevated blood-pressure reading, without diagnosis of hypertension, Z00.01 - Encounter for general adult medical examination with abnormal findings TDaP Immunization Today Z23 - Encounter for immunization Complete Blood Count Auto Diff Today E66.09 - Other obesity due to excess calories, R03.0 - Elevated blood-pressure reading, without diagnosis of hypertension, Z00.01 - Encounter for general adult medical examination with abnormal findings Comprehensive Otto. Panel Fast Today E66.09 - Other obesity due to excess calories, R03.0 - Elevated blood-pressure reading, without diagnosis of hypertension, Z00.01 - Encounter for general adult medical examination with abnormal findings Lipid Panel Today E66.09 - Other obesity due to excess calories, R03.0 - Elevated blood-pressure reading, without diagnosis of hypertension, Z00.01 - Encounter for general adult medical examination with abnormal findings Referrals Cologuard Test Z12.11 - Encounter for screening for malignant neoplasm of colon, Z12.12 - Encounter for screening for malignant neoplasm of rectum
[2025-05-11 13:30] VITALS: BP 130/86; PULSE 81; RESP 16; O2SAT 100
[2025-05-11 13:38] VITALS: BMI 40.1
== END 2025-05-11 13:59 | disposition home or self-care (01) ==
LOC: HO.HMCC 13:26
PROVIDERS: PCP Internal Medicine; Visit Provider Internal Medicine
DX: Z00.01 Encounter for general adult medical examination with abnormal findings (principal); R03.0 Elevated blood-pressure reading, without diagnosis of hypertension; E66.813 Obesity, class 3; Z68.41 Body mass index [BMI] 40.0-44.9, adult; Z12.11 Encounter for screening for malignant neoplasm of colon; Z23 Encounter for immunization

== ENCOUNTER → 2025-05-11 13:26 | Outpatient (BNVA) | payer OTHER, SELFPAY | PROVIDERS: PCP Internal Medicine; Visit Provider Internal Medicine | DX: Z00.01 Encounter for general adult medical examination with abnormal findings (principal); E66.813 Obesity, class 3; J30.9 Allergic rhinitis, unspecified; R03.0 Elevated blood-pressure reading, without diagnosis of hypertension; Z23 Encounter for immunization; Z68.41 Body mass index [BMI] 40.0-44.9, adult | CPT/HCPCS: 90471; 90715; 96127 ==

== ENCOUNTER 2025-05-12 09:56 | Outpatient (REF) | payer OTHER, SELFPAY ==
[2025-05-12 11:07] LABS: MANUAL DIFF FLAG NO
[2025-05-12 11:11] LABS: Hematocrit 40.2 % (37.0-47.0); Hemoglobin 12.9 g/dl (12.0-16.0); Imm Gran Abs Auto 0.01 X10*3/uL (0.00-0.03); Imm Gran Pct Auto 0.1 % (0.0-0.4); Lymphocytes Absolute Auto 2.8 X10*3/uL (1.2-4.9); Mean Corpuscular HGB Conc 32.1 g/dl (31.0-35.0); Mean Corpuscular Hemoglobin 26.9 pg (27.0-33.0); Mean Corpuscular Volume 83.8 fL (80.0-98.0); NRBC Abs Auto 0.000 X10*3/uL (0.0-0.012); NRBC Pct Auto 0.0 /100WBC (0.0-0.2); Platelet Count 266 X10*3/uL (160-400); Red Blood Count 4.80 X10*6/uL (4.20-5.50); White Blood Count 6.8 X10*3/uL (4.8-10.8)
[2025-05-12 11:50] LABS: Alanine Aminotransferase 27 U/L (0-31); Albumin Level 4.7 g/dL (3.5-5.0); Alkaline Phosphatase 81 U/L (39-117); Anion Gap 12 (12-20); Aspartate Amino Transferase 35 U/L (5-31); Blood Urea Nitrogen 15 mg/dL (9-16); Calcium 9.4 mg/dL (8.4-10.2); Carbon Dioxide 28 mmol/L (22-29); Chloride 108 mmol/L (96-108); Cholesterol 167 mg/dL (<200); Estimated Glomerular Filt Rate > 60; HDL Cholesterol 38 mg/dL (>40); Potassium 4.5 mmol/L (3.3-5.1); Sodium 143 mmol/L (135-145); Total Protein 7.9 g/dL (6.5-8.0); Triglycerides 115 mg/dL (<150)
[2025-05-12 12:41] LABS: Free T4 (Free Thyroxine) 1.07 ng/dL (0.71-1.85)
== END 2025-05-12 09:57 | disposition home or self-care (01) ==
LOC: HO.HMGCLDS 09:56
PROVIDERS: PCP Internal Medicine; Visit Provider Internal Medicine
DX: Z00.00 Encounter for general adult medical examination without abnormal findings (principal); E66.09 Other obesity due to excess calories; R03.0 Elevated blood-pressure reading, without diagnosis of hypertension
CPT/HCPCS: 36415; 80053; 80061; 84439; 84443; 85025